=== PATIENT | male | born 1985 ===

== ENCOUNTER 2016-08-28 10:45 | Day surgery (SDC) | payer MEDICARE, MEDICAID ==
[2016-08-28] VITALS (9 sets, daily range): BP systolic 118–138; BP diastolic 71–90
[~2016-08-28] VITALS: Ht 170.2 cm; Wt 53.1 kg
[~2016-08-28 10:45] MED LIST: BSS 15ml BTL ONE; BSS 500ml btl ONE; Bupivacaine 0.75% 30ml vial INJ ONE; Dexamethasone 4mg/ml vial ONE; EPINEPHrine 1mg/1ml Amp ONE; Gatifloxacin Opth Solution 0.5% LEFT EYE SCH; Lidocaine 4% Amp ONE; Povidone-Iodine 5% opth solution ONE; Tetracaine 0.5% Opth Soln ONE
[2016-08-28] MEDS ORDERED: Tropicamide 1% Opth Soln ONE (10:49)
[2016-08-28] MEDS ORDERED: Phenylephrine 2.5% Op Soln ONE (10:49)
[2016-08-28] MEDS ORDERED: Cyclopentolate 1% Opth Sol ONE (10:49)
[2016-08-28] MEDS ORDERED: Gatifloxacin Opth Solution 0.5% ONE (10:49)
[2016-08-28] MEDS ORDERED: LR 1000ml 1,000 ML IV SCH (11:00)
[2016-08-28] MEDS: Phenylephrine 2.5% Op Soln LEFT EYE SCH ×3 (11:15→11:40)
[2016-08-28] MEDS: Cyclopentolate 1% Opth Sol LEFT EYE SCH ×3 (11:15→11:41)
[2016-08-28] MEDS: Tropicamide 1% Opth Soln LEFT EYE SCH ×3 (11:15→11:41)
[2016-08-28] MEDS ORDERED: LANTUS SOL100 UNIT/1 SUBQ (11:47)
[2016-08-28] MEDS ORDERED: KEPPRA1000 MG ORAL (11:47)
[2016-08-28] MEDS ORDERED: HUMALOG100 UNIT/4 SUBQ (11:47)
[2016-08-28] MEDS ORDERED: RENAL CAPS SOFTG1 MG PO (11:47)
[2016-08-28] MEDS ORDERED: CALCIUM600 M1 PO (11:47)
[2016-08-28] MEDS ORDERED: Midazolam 2mg/2ml Inj ONE (12:15)
[2016-08-28] MEDS ORDERED: Sterile Water Irrig 1000ml IRRIG ONE (12:15)
[2016-08-28] MEDS ORDERED: NS Irrig 1000ml ONE (12:15)
[2016-08-28] MEDS ORDERED: Alfentanil 2ml Inj ONE (12:15)
[2016-08-28] MEDS ORDERED: Propofol 10mg/ml 20ml IV ONE (12:15)
[2016-08-28] MEDS ORDERED: Lidocaine 1% MPF 10mg/ml 5ml ONE (12:15)
[2016-08-28] MEDS ORDERED: LR 1000ml 1,000 ML IVLG SCH (12:26)
--- NOTE | 2016-08-28 12:26 | Anethesia Preoperative Eval ---
Anesthesia Pre-op PMH/ROS General Date of Evaluation: Aug 28, 2016 Anesthesiologist: Nohemy ASA Score: ASA 3 Mallampati Score Class I : Soft palate, uvula, fauces, pillars visible Class II: Soft palate, uvula, fauces visible Class III: Soft palate, base of uvula visible Class IV: Only hard plate visible Mallampati Classification: Class II Surgeon: David Diagnosis: Retinal Detachment OS Surgical Procedure: Vitrectomy OS Anesthesia History: none Family History: no anesthesia problems Allergies: Coded Allergies: No Known Allergies (Unverified , 08/25/16) Medications: see eMAR Past Medical History Gastrointestinal/Genitourinary: Reports: ESRD - AV Fistula Neurologic/Psychiatric: Reports: other - Seizures Hematology/Immune: Reports: anemia PSxH Narrative: AV Fistula Anesthesia Pre-op Phys. Exam Physician Exam Last Vital Signs Date Time Temp Pulse Resp B/P Pulse Ox O2 Delivery O2 Flow Rate FiO2 08/28/16 11:19 98.0 105 18 118/73 99 Room Air Constitutional: NAD Neurologic: CN 2-12 intact Cardiovascular: RRR Respiratory: CTA Gastrointestinal: S/NT/ND Airway Exam Mallampati Score: Class II MO: limited ROM: limited Teeth: missing, intact, broken Anesthesia Pre-op A/P Labs Chemistry Test 08/28/16 11:50 Potassium Level 4.0 mEQ/L (3.4-4.9) Risk Assessment & Plan Assessment: ASA 3 Plan: GA Status Change Before Surgery: No Marcelo Slater MD Aug 28, 2016 12:26
[2016-08-28] MEDS ORDERED: Ketorolac 60mg Inj IV PRN (12:30)
[2016-08-28] MEDS ORDERED: Hydromorphone 0.5mg/0.5ml inj IVP PRN (12:30)
[2016-08-28] MEDS ORDERED: Metoclopramide 10mg/2ml Inj IVP PRN (12:30)
[2016-08-28] MEDS ORDERED: LORazepam Inj 2mg/ml 1ml IV PRN (12:30)
[2016-08-28] MEDS ORDERED: Ketorolac 30mg Inj IV PRN (12:30)
[2016-08-28] MEDS ORDERED: Atropine Inj 1mg/10ml Syr IV PRN (12:30)
[2016-08-28] MEDS ORDERED: Midazolam 2mg/2ml Inj IVP PRN (12:30)
[2016-08-28] MEDS ORDERED: Meperidine 25mg/0.5ml Inj IV PRN (12:30)
[2016-08-28] MEDS ORDERED: Norco 7.5mg/325mg tab ORAL PRN (12:30)
[2016-08-28] MEDS ORDERED: fentaNYL 100 mcg/2 mL IV PRN (12:30)
[2016-08-28] MEDS ORDERED: Oxycodone/Acetaminophen 5-325 ORAL PRN (12:30)
[2016-08-28] MEDS ORDERED: DiphenhydrAMINE 50mg/ml Inj IVP PRN (12:30)
[2016-08-28] MEDS ORDERED: Norco 5mg/325mg tab ORAL PRN (12:30)
--- NOTE | 2016-08-28 12:30 | Pre-Procedure Note/Attestation ---
Pre-Procedure Note/Attestation Complete Prior to Procedure Planned Procedure: left Procedure Narrative: pars plana vitrectomy with peel and laser OS Indications for Procedure Pre-Operative Diagnosis: proliferative diabetic retinopathy with traction retinal detachment and vitreous hemorrhage Attestation I attest that I discussed the nature of the procedure; its benefits; risks and complications; and alternatives (and the risks and benefits of such alternatives ), prior to the procedure, with the patient (or the patient's legal outbound call center representative). I attest that, if there was a reasonable possibility of needing a blood transfusion, the patient (or the patient's legal outbound call center representative) was given the [facility] standardized written summary, pursuant to the [place] Blood Safety Act ([place] Health and Safety Code # 1645, as amended). I attest that I re-evaluated the patient just prior to the surgery and that there has been no change in the patient's H&P, except as documented below: Shawn Hernandez MD Aug 28, 2016 12:30
[2016-08-28] MEDS ORDERED: Goniosol 2.5% Opth Soln - 15ml ONE (12:46)
--- NOTE | 2016-08-28 13:08 | Brief Operative Note ---
Immediate Post Operative Note Operative Note Pre-op Diagnosis: proliferative diabetic retinopathy with traction retinal detachment and vitreous hemorrhage Procedure: Pars plana vitrectomy with membrane peel and endolaser OS Post-op Diagnosis: same as pre op Post-op Diagnosis: same as pre-op Surgeon: David Anesthesiologist: ÁNGEL Anesthesia: local, MAC Specimen: none Complications: none Condition: stable Estimated Blood Loss: none Drains: none Implant(s) used?: No Shawn Hernandez MD Aug 28, 2016 13:08
--- NOTE | 2016-08-28 13:12 | Immediate Post-Op Evaluation ---
Immediate Post-Op Evalulation Immediate Post-Op Evalulation Procedure: Vitrectomy OS Date of Evaluation: Aug 28, 2016 Time of Evaluation: 13:17 IV Fluids: 200 NS Blood Products: 0 Estimated Blood Loss: 1 Urinary Output: 0 Blood Pressure Systolic: 124 Blood Pressure Diastolic: 78 Pulse Rate: 104 Respiratory Rate: 16 O2 Sat by Pulse Oximetry: 100 Temperature (Fahrenheit): 98 Pain Score (1-10): 1 Nausea: No Vomiting: No Complications 0 Patient Status: awake, reacts, patent, none Hydration Status: adequate Marcelo Slater MD Aug 28, 2016 13:12
--- NOTE | 2016-08-28 13:13 | 48 Hour Post Anesthesia Eval ---
Post Anesthesia Evaluation Procedure: Vitrectomy OS Date of Evaluation: Aug 28, 2016 Time of Evaluation: 15:22 Blood Pressure Systolic: 124 0: 76 Pulse Rate: 103 Respiratory Rate: 18 Temperature (Fahrenheit): 98.3 O2 Sat by Pulse Oximetry: 100 Airway: patent Nausea: No Vomiting: No Pain Intensity: 1 Hydration Status: adequate Cardiopulmonary Status: Stable Mental Status/LOC: patient returned to baseline Follow-up Care/Observations: 0 Post-Anesthesia Complications: 0 Follow-up care needed: ready to discharge Marcelo Salter MD Aug 28, 2016 13:13
--- NOTE | 2016-08-28 21:15 | Operative Note - Dictated ---
DATE OF OPERATION: 08/28/2016 PREOPERATIVE DIAGNOSIS: Proliferative diabetic retinopathy with vitreous hemorrhage, traction, and retinal detachment, left eye. POSTOPERATIVE DIAGNOSIS: Proliferative diabetic retinopathy with vitreous hemorrhage, traction, and retinal detachment, left eye. PROCEDURE PERFORMED: Pars plana vitrectomy with membrane peel and endolaser, left eye. SURGEON: Shawn Hernandez M.D. BAFFLE MOUNTER SURGEON: Unassisted. ANESTHESIA: Local (4% lidocaine and 0.75% bupivacaine via retrobulbar injection). COMPLICATIONS: None. DESCRIPTION OF PROCEDURE: After informed consent was obtained, clearance by anesthesia, and identification by Dr. Hernandez, the patient was brought to the operating room, where he received his anesthetic injections and the left eye was prepped and draped in usual sterile ophthalmic fashion. A wire lid speculum was placed in the conjunctiva fornices and a 3-port 23-gauge vitrectomy was created in this pseudophakic patient. Trocars and cannulas were placed, 4 mm posterior to surgical limbus supratemporally, superonasally, and inferotemporal. Once the infusion cannula was noted to be inside the eye, infusion was turned on. The cortical vitreous was then removed from the posterior surface of the lens to the surface of the retina and the vitreous was excised to the vitreous base. There was preretinal membrane present over the disc causing traction along the posterior pole and was engaged using intraocular forceps, , subsequently segmented and delaminated using ocutome. At this point, endolaser was applied in a panretinal ablation pattern. Approximately 1000 spots were applied using power of 400 mW and then exposure time 0.05 seconds. A good uptake was noted practically all the application. The eye was examined using scleral depression. No holes or tears noted in the periphery. He had trocar and cannulas were then removed. The wounds were noted to be watertight. Subconjunctival cefazolin, Decadron, and topical atropine drops were placed on the eye, which was patched and shielded. The patient left the operating room in stable condition. Shawn Hernandez M.D. DR: NADIA/ruthie JOB#: [id number] CC:
--- NOTE | 2016-08-28 22:01 | Pre-op HX & Phy Repo 2 SIG ---
DATE OF ADMISSION: 08/28/2016 DATE OF SURGERY: 08/28/2016 PREOPERATIVE DIAGNOSIS: Proliferative diabetic retinopathy and vitreous hemorrhage, and traction retinal detachment, left eye. HISTORY OF PRESENT ILLNESS: The patient is a 31-year-old gentleman who I initially evaluated on 05/11/2016. At that time, he presented with proliferative diabetic retinopathy. Visual acuity was hand motions in the right eye and count fingers at 3 feet in the left eye and he underwent intravitreal Avastin injection to the right eye. He underwent vitrectomy to the right eye on 05/18/2016 with an Ahmed valve for neovascular glaucoma. Unfortunately, his vision had progressed to no light perception when I saw him on 08/22/2016 after he missed an appointment following 06/15/2016 visit. He is developing persistent vitreous hemorrhaging in the left eye with his vision dropping from 20/160 now to count fingers at 2 feet, non-clearing vitreous hemorrhage, and traction retinal detachment. He is now being admitted for pars plana vitrectomy with membrane peel, endolaser to his left eye. PAST MEDICAL HISTORY: Remarkable for type 2 diabetes of 20 years duration, hypertension, end-stage renal disease, on dialysis, and tracheal stenosis. PAST SURGICAL HISTORY: Remarkable for tracheal surgery and cyst removal as well as the eye surgery as above. MEDICATIONS: Insulin, tramadol, metoprolol, Keppra, and vitamins. ALLERGIES: He has no known drug allergies. SOCIAL HISTORY: Remarkable for being a fall risk. He has no history of tobacco use or alcohol or substance abuse. FAMILY HISTORY: Remarkable for diabetes. REVIEW OF SYSTEMS: Otherwise, negative with the exception of some episodic nausea and difficulty with urination. PHYSICAL EXAMINATION: HEENT: On examination, his visual acuity is no light perception in the right eye and count fingers at 2 feet in the left eye. Tension is 16 in the right eye and 12 in the left eye. External examination is unremarkable. Anterior segment by microscopy with histogram of the right eye demonstrates some hyphema and 2+ nuclear sclerosis of the lens. In the left eye, the conjunctiva is quiet. The cornea is clear. The anterior chamber is quiet with a tube shunt in good position. There is no iris neovascularization. There is 2+ nuclear sclerosis and 2+ PSC cataract. Dilated vitrea on examination in the right eye demonstrates no view, and in the left eye, there is 3+ vitreous hemorrhage with some scattered dot and blot hemorrhages in the macula. The cup-to-disc ratio is 0.3. There is some macular edema noted. This photocoagulation traction is noted superotemporal. IMPRESSION AND PLAN: Proliferative diabetic retinopathy with traction retinal detachment, left eye and vitreous hemorrhage, left eye. Neovascular glaucoma, left eye. I discussed my findings with the patient. He has severe disease in both eyes with blindness in the right eye and the left eye is his only eye and is getting worse. After discussion of risks, benefits, alternatives, possibility of hemorrhage, infection, loss of vision, loss of eye, worsening of cataract, and hemorrhage, infection, he understands and agrees to the surgery. In anticipation of surgery, he did undergo intravitreal Avastin injection on 08/22/2016. Shawn Hernandez M.D. DR: BRENDAN JOB#: [id number] CC:
== END 2016-08-28 15:15 | disposition home or self-care (01) ==
LOC: SUR 10:45
DX: E10.3532 Type 1 diabetes mellitus with proliferative diabetic retinopathy with traction retinal detachment not involving the macula, left eye (principal); Z79.4 Long term (current) use of insulin; H43.12 Vitreous hemorrhage, left eye; H54.41 Blindness, right eye, normal vision left eye; I12.0 Hypertensive chronic kidney disease with stage 5 chronic kidney disease or end stage renal disease; E10.22 Type 1 diabetes mellitus with diabetic chronic kidney disease; N18.6 End stage renal disease; Z99.2 Dependence on renal dialysis; J39.8 Other specified diseases of upper respiratory tract; R56.9 Unspecified convulsions; D64.9 Anemia, unspecified; Z87.891 Personal history of nicotine dependence
CPT/HCPCS: 36415; 67040; 82962; 84132; J0171; J0690; J1100; J2250; J2704; J3010; J3470; J3490; 94003; 94150